=== PATIENT | female | born 1975 | race Asian ===

== ENCOUNTER → 2018-07-12 12:13 | Outpatient (CLI) | payer OTHER, SELFPAY ==
[2018-07-12 13:34] LABS: Alanine Aminotransferase 28 IU/L (9-52); Albumin 4.6 g/dL (3.5-5.0); Albumin Globulin Ratio 1.5 (1.0-2.8); Alkaline Phosphatase 87 U/L (38-126); Aspartate Aminotransferase 23 IU/L (14-36); BUN Creatinine Ratio 24.3 (6-22); Bilirubin Total 0.4 mg/dL (0.2-1.3); Blood Urea Nitrogen 17 mg/dL (7-17); Calcium 9.5 mg/dL (8.4-10.2); Carbon Dioxide 27 mmol/L (22-32); Chloride 103 mmol/L (98-107); Estimated Glomerular Filt Rate > 60.0 mL/min (>60); Globulin 3.1 g/dL (1.7-4.1); Glucose 87 mg/dL (70-100); HEMOLYSIS < 15 (0-50); Potassium 4.2 mmol/L (3.4-5.1); Sodium 142 mmol/L (137-145); Total Protein 7.7 g/dL (6.3-8.2)
[2018-07-12 13:50] LABS: Free T4, Direct Thyroxine 1.07 ng/dL (0.78-2.19)
[2018-07-12 14:04] LABS: Thyroid Stimulating Hormone 4.11 uIU/mL (0.47-4.68)
[2018-07-12 14:32] LABS: Microalbumi Creatinin Ratio Ur 24.9 ug/mg CR (<30); Microalbumin Urine Random < 0.6 mg/dL (0-1.6)
== END ==
PROVIDERS: Family Provider Physician Assistant; PCP Physician Assistant; Visit Provider Physician Assistant
DX: E03.9 Hypothyroidism, unspecified (principal); I10 Essential (primary) hypertension
CPT/HCPCS: 36415; 80053; 82043; 82570; 84439; 84443

== ENCOUNTER → 2018-08-27 09:54 | Outpatient (CLI) | payer OTHER, SELFPAY ==
--- NOTE | 2018-08-27 | DI.MG.S_ITS ---
BILATERAL DIGITAL SCREENING MAMMOGRAM 3D/2D WITH CAD: 08/27/2018 CLINICAL: Routine screening. Family history of breast cancer. Comparison is made to exams dated: 06/07/2017 mammogram, 04/30/2015 mammogram, and 05/18/2016 mammogram - [facility]. The tissue of both breasts is extremely dense, which lowers the sensitivity of mammography. Current study was also evaluated with a Computer Aided Detection (CAD) system. No significant masses, calcifications, or other findings are seen in either breast. There has been no significant interval change. IMPRESSION: NEGATIVE There is no mammographic evidence of malignancy. A 1 year screening mammogram is recommended. This exam was interpreted at Station ID: [id number]. NOTE: For mammograms, a report in lay terms will be sent to the patient. Approximately 15% of breast malignancies will not be visualized mammographically. In the management of a palpable breast mass, a negative mammogram must not discourage biopsy of a clinically suspicious lesion. Electronically Signed By: Melissa brandt/nicole:08/27/2018 11:12:05 letter sent: Normal Exam ACR BI-RADS Category 1: Negative 3341F
== END ==
PROVIDERS: PCP Physician Assistant; Visit Provider Physician Assistant
DX: Z12.31 Encounter for screening mammogram for malignant neoplasm of breast (principal); Z80.3 Family history of malignant neoplasm of breast
CPT/HCPCS: 77063; 77067

== ENCOUNTER → 2019-02-09 13:14 | Outpatient (CLI) | payer OTHER, SELFPAY ==
[2019-02-09 14:33] LABS: BUN Creatinine Ratio 18.6 (6-22); Blood Urea Nitrogen 13 mg/dL (7-17); Calcium 9.3 mg/dL (8.4-10.2); Carbon Dioxide 25 mmol/L (22-32); Chloride 101 mmol/L (98-107); Estimated Glomerular Filt Rate > 60.0 mL/min (>60); Glucose 85 mg/dL (70-100); HEMOLYSIS < 15 (0-50); Sodium 136 mmol/L (137-145)
[2019-02-09 15:03] LABS: Thyroid Stimulating Hormone 3.97 uIU/mL (0.47-4.68)
== END ==
PROVIDERS: PCP Physician Assistant; Visit Provider Physician Assistant
DX: E03.9 Hypothyroidism, unspecified (principal); I10 Essential (primary) hypertension
CPT/HCPCS: 36415; 80048; 84443

== ENCOUNTER → 2019-07-29 07:26 | Outpatient (CLI) | payer OTHER, SELFPAY ==
[2019-07-29 09:43] LABS: Alanine Aminotransferase 14 IU/L (9-52); Albumin 4.4 g/dL (3.5-5.0); Albumin Globulin Ratio 1.5 (1.0-2.8); Alkaline Phosphatase 66 U/L (38-126); Aspartate Aminotransferase 24 IU/L (14-36); BUN Creatinine Ratio 18.8 (6-22); Bilirubin Total 0.5 mg/dL (0.2-1.3); Blood Urea Nitrogen 15 mg/dL (7-17); Calcium 9.2 mg/dL (8.4-10.2); Carbon Dioxide 30 mmol/L (22-32); Chloride 101 mmol/L (98-107); Cholesterol 185 mg/dL (140-199); Estimated Glomerular Filt Rate > 60.0 mL/min (>60); Globulin 2.9 g/dL (1.7-4.1); Glucose 93 mg/dL (70-100); HDL Cholesterol 59 mg/dL (40-60); HEMOLYSIS < 15 (0-50); LDL Cholesterol Calculated 103 mg/dL (<100); Sodium 138 mmol/L (137-145); Total Protein 7.3 g/dL (6.3-8.2); Triglycerides 116 mg/dL (35-150)
[2019-07-29 10:42] LABS: Thyroid Stimulating Hormone 3.67 uIU/mL (0.47-4.68)
[2019-07-29 10:56] LABS: Creatinine Urine Random 204.7 mg/dL
[2019-07-29 11:00] LABS: Microalbumi Creatinin Ratio Ur 3.9 ug/mg CR (<30); Microalbumin Urine Random 0.8 mg/dL (0-1.6)
== END ==
PROVIDERS: PCP Physician Assistant; Visit Provider Physician Assistant
DX: E03.9 Hypothyroidism, unspecified (principal); I10 Essential (primary) hypertension
CPT/HCPCS: 36415; 80053; 80061; 82043; 82570; 84443

== ENCOUNTER → 2019-08-28 11:57 | Outpatient (CLI) | payer OTHER, SELFPAY ==
--- NOTE | 2019-08-28 11:58 | DI.MG.S_ITS ---
BILATERAL DIGITAL SCREENING MAMMOGRAM 3D/2D WITH CAD: 08/28/2019 CLINICAL: Routine screening. Comparison is made to exams dated: 08/27/2018 mammogram, 06/07/2017 mammogram, and 05/18/2016 mammogram - [facility]. The tissue of both breasts is heterogeneously dense. This may lower the sensitivity of mammography. Current study was also evaluated with a Computer Aided Detection (CAD) system. No significant masses, calcifications, or other findings are seen in either breast. There has been no significant interval change. IMPRESSION: NEGATIVE There is no mammographic evidence of malignancy. A 1 year screening mammogram is recommended. This exam was interpreted at Station ID: [id number]. NOTE: For mammograms, a report in lay terms will be sent to the patient. Approximately 15% of breast malignancies will not be visualized mammographically. In the management of a palpable breast mass, a negative mammogram must not discourage biopsy of a clinically suspicious lesion. Electronically Signed By: Sandra deshpande/nicole:08/29/2019 10:19:08 letter sent: Normal Exam ACR BI-RADS Category 1: Negative 3341F
== END ==
PROVIDERS: PCP Physician Assistant; Visit Provider Physician Assistant
DX: Z12.31 Encounter for screening mammogram for malignant neoplasm of breast (principal)
CPT/HCPCS: 77063; 77067

== ENCOUNTER 2020-03-21 12:47 | Emergency (ER) | payer OTHER, SELFPAY ==
[2020-03-21 13:12] VITALS: BP 135/98; PULSE 76; RESP 16; TEMP 36.3; O2SAT 100; BMI 23.6
[2020-03-21 14:43] LABS: Alanine Aminotransferase 17 IU/L (<35)
[2020-03-21] MEDS: TET,DIPH,PERTUSS(ACELL),VAC/PF 0.5 ML SYRINGE IM (14:43)
--- NOTE | 2020-03-21 14:47 | ED_ITS ---
HPI - General Adult <REINA Cruz-BC - Last Filed: 03/21/20 19:29> General Chief complaint: Blood/Body fluid exposure Stated complaint: middle finger right hand from arch wire. Time Seen by Provider: 03/21/20 14:17 Source: patient Mode of arrival: Ambulatory Limitations: no limitations History of Present Illness HPI narrative: And the patient is a 44-year-old female nonsmoker with history of hypothyroidism who presents with a chief complaint of being stuck by a wire during maxillofacial surgery. She states that there is a little bit of blood on the wire and went through her glove into her finger. She states that she immediately left surgery, removed her gloves and then washed her hands. She is not sure the last time she had a tetanus vaccination. She states she was fully vaccinated against hepatitis-B. She states that the the patient is low risk for HIV or blood borne diseases as he is with 2 children and does not have any pertinent history. She states she is here in order to get baseline labs drawn. Related Data Previous Rx's Medication Instructions Recorded hydrochlorothiazide 12.5 mg capsule 12.5 mg PO DAILY #90 cap 06/19/19 levothyroxine 50 mcg tablet 50 mcg PO QAM #90 tab 06/19/19 amoxicillin 875 mg tablet 875 mg PO BID #28 tab 07/31/19 amlodipine 5 mg tablet 5 mg PO QDAY #90 tab 03/20/20 Allergies Allergy/AdvReac Type Severity Reaction Status Date / Time Sulfa (Sulfonamide Allergy Severe RASH Verified 07/31/19 11:02 Antibiotics) [SULFA (SULFONAMIDE ANTIBIOTICS)] lisinopril AdvReac Intermediate cough and Verified 07/31/19 11:02 chest congestion Review of Systems <REINA Cruz-BC - Last Filed: 03/21/20 19:29> Review of Systems Narrative: GENERAL: Denies chills, fatigue, malaise, fever, sweats. HEENT: Denies sinus pain, ear pain, sore throat, difficulty swallowing, dizziness. RESPIRATORY: Denies dyspnea, cough, wheezing, hemoptysis, sputum. CARDIOVASCULAR: Denies chest pain, palpitations, orthopnea, edema, GASTROINTESTINAL: Denies nausea, vomiting, abdominal pain, diarrhea, constipation, melena. : Denies dysuria, frequency, incontinence, hematuria, urinary retention. MUSCULOSKELETAL: denies weakness, joint pain, or bony pain SKIN: See HPI NEUROLOGIC: Denies weakness, headache, numbness, change in speech, confusion, seizures, incoordination. PSYCHIATRIC: No concerning psychosocial issues. 12 point review of systems is negative except for those stated above Patient History <RAMÓN Cruz - Last Filed: 03/21/20 19:29> Medical History Hyperlipidemia (Chronic ~02/2012) Hypertension (Chronic) Hypothyroidism (Chronic) Surgical History History of nasal surgery (Resolved) Family History Father Hypertension Abdominal aortic aneurysm Coronary artery disease Hyperlipidemia Mother Breast cancer Social History Smoking Status: Never smoker second hand exposure: No alcohol intake: current (sparkling seltzer with a little bit of alcohol on occasions.) substance use type: does not use Smoking Status: Never smoker alcohol intake frequency: holidays/special occasions only Substance Use Type: does not use Exam <RAMÓN Cruz - Last Filed: 03/21/20 19:29> Narrative Exam Narrative: GENERAL: This is a well-nourished, well-developed patient, no acute distress HEAD: Atraumatic. Normocephalic. No temporal or scalp tenderness. EYES: Pupils equal round and reactive. Extraocular motions intact. No scleral icterus. No injection or drainage. ENT: Nose without bleeding, purulent drainage or septal hematoma. Throat without erythema, tonsillar hypertrophy or exudate. Uvula midline. Airway patent. NECK: Trachea midline. No JVD or lymphadenopathy. Supple, nontender, no meningeal signs. CARDIOVASCULAR: Regular rate and rhythm RESPIRATORY: No cough. No increased respiratory effort. No accessory muscle use. EXTREMITIES: Positive right radial pulse. Full range of motion noted right fingers. BACK: Nontender without deformity or crepitance. No flank tenderness. NEURO: AOx3. SKIN: Small puncture site noted on middle finger right hand, tip with no active bleeding. Initial Vital Signs Initial Vital Signs: Vital Signs Temperature 97.4 F L 03/21/20 13:12 Pulse Rate 76 03/21/20 13:12 Respiratory Rate 16 03/21/20 13:12 Blood Pressure 135/98 H 03/21/20 13:12 Pulse Oximetry 100 03/21/20 13:12 <Sherice Nieto DO - Last Filed: 04/02/20 08:32> Initial Vital Signs Initial Vital Signs: Vital Signs Temperature 97.4 F L 03/21/20 13:12 Pulse Rate 76 03/21/20 13:12 Respiratory Rate 16 03/21/20 13:12 Blood Pressure 135/98 H 03/21/20 13:12 Pulse Oximetry 100 03/21/20 13:12 Scores <RAMÓN Cruz - Last Filed: 03/21/20 19:29> GCS [place] coma scale eye opening: Spontaneous Marlon coma scale verbal response: Orientated [place] coma scale motor response: Obey commands [place] coma scale total score: 15 Course <RAMÓN Cruz - Last Filed: 03/21/20 19:29> Orders Ordered: Discontinued Medications Diphtheria/Tetanus/Acell Pertussis (Adacel) 0.5 ml IM .ONCE ONE Stop: 03/21/20 14:29 Last Admin: 03/21/20 14:43 Dose: 0.5 ml Documented by: IRENE Vital Signs Vital signs: Vital Signs - 8 hr 03/21/20 13:12 03/21/20 15:44 Temperature 97.4 F L Pulse Rate 76 74 Respiratory Rate 16 14 Blood Pressure 135/98 H 160/97 H Pulse Oximetry 100 100 <Sherice Nieto DO - Last Filed: 04/02/20 08:32> Orders Ordered: Discontinued Medications Diphtheria/Tetanus/Acell Pertussis (Adacel) 0.5 ml IM .ONCE ONE Stop: 03/21/20 14:29 Last Admin: 03/21/20 14:43 Dose: 0.5 ml Documented by: IRENE Vital Signs Vital signs: Vital Signs - 8 hr 03/21/20 13:12 03/21/20 15:44 Temperature 97.4 F L Pulse Rate 76 74 Respiratory Rate 16 14 Blood Pressure 135/98 H 160/97 H Pulse Oximetry 100 100 Medical Decision Making <RAMÓN Cruz - Last Filed: 03/21/20 19:29> Lab Data Labs: Lab Results 03/21/20 03/21/20 03/21/20 Range/Units 14:22 14:22 14:22 ALT 17 (<35) IU/L Hep Bs Antigen Negative (NEGATIVE) s/c Hep Bs Antibody Reactive (.) Hepatitis C Antibody Negative (NEGATIVE) s/c HIV 1&2 Ab/P24 Ag 4thGn Negative (NEGATIVE) MDM Narrative Medical decision making narrative: The patient is a 44-year-old female who presents with a chief complaint of being stuck by an arch wire in her right middle finger during a surgery. She is thus here for a possible blood borne exposure. Exposure panel was drawn. Patient's tetanus was up made up-to-date kit [place]. She states she is fully vaccinated against hepatitis B. She does not want post exposure prophylaxis for HIV at this point as she states that the patient is low risk, with 2 children no history of IV drug use etcetera. She plans on following up with [facility] and [facility] as well as her primary care provider. I discussed at length the importance of repeat labs, testing the patient she was exposed to if consent was given etcetera. Patient has no questions or concerns upon discharge and states understanding return precautions as well as follow-up care. <Sherice Nieto DO - Last Filed: 04/02/20 08:32> Lab Data Labs: Lab Results 03/21/20 03/21/20 03/21/20 Range/Units 14:22 14:22 14:22 ALT 17 (<35) IU/L Hep Bs Antigen Negative (NEGATIVE) s/c Hep Bs Antibody Reactive (.) Hepatitis C Antibody Negative (NEGATIVE) s/c HIV 1&2 Ab/P24 Ag 4thGn Negative (NEGATIVE) Discharge Plan Departure Patient Disposition: Home Clinical Impression: Exposure to blood or body fluid Discharge Date/Time: 03/21/20 15:45 Instructions: DI for Accidental Exposure to Body Fluids Activity Restrictions/Additional Instructions: Thank you for trusting us with your care today I am sorry that you were stuck with wire. Today we updated your tetanus. We also pranay baseline exposure panel labs. We have elected to hold off on HIV post exposure prophylaxis as the patient your exposed to appeared to be low risk. In the hospital, we ask for permission to get baseline labs for the patient in order to facilitate decision making. This might be nice to do if possible. I will call you later today when we have more blood lab results. Otherwise, there other rest of the labs will come back in 2-3 days Please follow up with [facility] as well as your primary care provider. Prescriptions: No Action amlodipine [Norvasc] 5 mg tablet 5 mg PO QDAY Qty: 90 RF: 0 hydrochlorothiazide 12.5 mg capsule 12.5 mg PO DAILY Qty: 90 RF: 3 levothyroxine 50 mcg tablet 50 mcg PO QAM Qty: 90 RF: 3 amoxicillin 875 mg tablet 875 mg PO BID Qty: 28 RF: 0 Referrals: Kassidy Caldwell PA-C [Primary Care Provider] - Gerard Monsalve ARNP [[employer]] -
[2020-03-21 15:44] VITALS: BP 160/97; PULSE 74; RESP 14; O2SAT 100
[2020-03-21 16:18] LABS: Hepatitis B Surface Antigen NEGATIVE s/c (NEGATIVE)
[2020-03-21 16:48] LABS: HIV 1 & 2 Ab/Ag 4th Gen Combo NEGATIVE (NEGATIVE); Hep C Virus Ab w/Reflex Quant NEGATIVE s/c (NEGATIVE)
[2020-03-22 04:36] LABS: Hepatitis B Surf Ab Qualitativ Reactive (.)
== END 2020-03-21 15:45 | disposition home or self-care (01) ==
PROVIDERS: Emergency Provider Nurse Practitioner Family; PCP Physician Assistant
DX: Z77.21 Contact with and (suspected) exposure to potentially hazardous body fluids (principal); W22.8XXA Striking against or struck by other objects, initial encounter; Y99.0 Civilian activity done for income or pay; Z23 Encounter for immunization
CPT/HCPCS: 36415; 84460; 86706; 86803; 87340; 87389; 90471; 99283; 90715

== ENCOUNTER → 2020-07-15 07:26 | Outpatient (CLI) | payer OTHER, SELFPAY ==
[2020-07-15 08:34] LABS: Hematocrit 43.2 % (36-46); Hemoglobin 14.6 g/dL (12.0-16.0); Mean Corpuscular HGB Conc 33.7 % (30-36); Mean Corpuscular Hemoglobin 30.3 PG (26-34); Mean Corpuscular Volume 89.9 fL (80-100); Platelet Count 219 X10^3/uL (150-400); Red Blood Cell Count 4.81 X10^6/uL (4.0-5.2); Red Cell Distribution Width 13.4 % (11.6-14.8); White Blood Cell Count 4.6 X10^3/uL (4.5-11.0)
[2020-07-15 08:59] LABS: Alanine Aminotransferase 19 IU/L (<35); Albumin 4.4 g/dL (3.5-5.0); Albumin Globulin Ratio 1.5 (1.0-2.8); Alkaline Phosphatase 80 U/L (38-126); Aspartate Aminotransferase 28 IU/L (14-36); BUN Creatinine Ratio 15.3 (6-22); Bilirubin Total 0.6 mg/dL (0.2-1.3); Blood Urea Nitrogen 11 mg/dL (7-17); Calcium 9.3 mg/dL (8.4-10.2); Carbon Dioxide 32 mmol/L (22-32); Chloride 102 mmol/L (98-107); Cholesterol 241 mg/dL (140-199); Estimated Glomerular Filt Rate > 60.0 mL/min (>60); Globulin 2.9 g/dL (1.7-4.1); Glucose 98 mg/dL (70-100); HDL Cholesterol 57 mg/dL (40-60); HEMOLYSIS < 15 (0-50); LDL Cholesterol Calculated 148 mg/dL (<100); Potassium 4.3 mmol/L (3.4-5.1); Sodium 140 mmol/L (137-145); Total Protein 7.3 g/dL (6.3-8.2); Triglycerides 178 mg/dL (35-150)
[2020-07-15 09:24] LABS: TSH w/ Reflex to FT4 6.83 uIU/mL (0.47-4.68)
[2020-07-15 09:52] LABS: Free T4, Direct Thyroxine 1.15 ng/dL (0.78-2.19)
--- NOTE | 2020-07-15 10:13 | DI.US.S_ITS ---
PROCEDURE: US PELVIC COMPLETE INDICATIONS: WORSENING LEFT PELVIC PAIN X 6 MONTHS TECHNIQUE: Real-time scanning was performed of the pelvic organs, with image documentation. Additional endovaginal scanning was necessary due to incomplete visualization of the adnexal and endometrial structures by transabdominal scanning. COMPARISON: [facility], US, PELVIC COMPLETE, 09/27/2013, 10:07. FINDINGS: Transabdominal scanning: Limited scanning through the kidneys shows no hydronephrosis. 5 x 4 x 5 mm homogeneously hyperechoic structure is noted in midpole of left kidney without internal vascularity. No pathologic free abdominal fluid. Physiologic amount of free fluid is seen in lower pelvis. Endovaginal scanning: Uterus: Uterus is normal in size at 7.9 x 5.1 x 5.6 cm. The endometrium measures 5.8 mm in combined thickness. Multiple anechoic cysts are noted scattered in myometrium measures up to 3 x 3 x 2 mm in size. No gross endometrial mass or fluid. Small nabothian cysts are noted in endocervical canal. Ovaries: Right ovary measures 3.4 x 2.7 x 1.9 cm in size. Left ovary measures 2.6 x 1.6 x 1.0 cm in size. 1.4 x 1.4 x 0.8 cm cystic structure in right ovary is seen with internal low level echoes. No internal vascularity. left Normal arterial and venous flow is seen in bilateral ovaries on color Doppler images. IMPRESSION: 1. Right ovarian cyst as above, decreased in size compared to 2013 study. No gross solid appearing ovarian lesion. No evidence of ovarian torsion. 2. Tiny cystic areas are seen scattered in myometrium measures up to 3 mm in size. No endometrial mass or fluid. 3. Incidentally noted of 5 x 4 x 5 mm hyperechoic structure in midpole of left kidney likely represent angiomyolipoma. Dictated by: Quincy Cramer M.D. on 07/15/2020 at 14:41 Approved by: Quincy Cramer M.D. on 07/15/2020 at 14:47
== END ==
PROVIDERS: PCP Registered Nurse Diabetes Educator; Referring Provider Registered Nurse Diabetes Educator; Visit Provider Registered Nurse Diabetes Educator
DX: R10.2 Pelvic and perineal pain (principal); N83.201 Unspecified ovarian cyst, right side; E03.9 Hypothyroidism, unspecified; E78.00 Pure hypercholesterolemia, unspecified; I10 Essential (primary) hypertension
CPT/HCPCS: 36415; 76830; 76856; 80053; 80061; 84439; 84443; 85027

== ENCOUNTER → 2020-08-26 10:52 | Outpatient (CLI) | payer OTHER, SELFPAY ==
[2020-08-26 12:34] LABS: Cancer Antigen 125 9.5 U/mL (0-35); TSH w/ Reflex to FT4 1.41 uIU/mL (0.47-4.68)
== END ==
PROVIDERS: Obstetrics & Gynecology; PCP Registered Nurse Diabetes Educator; Referring Provider Registered Nurse Diabetes Educator; Visit Provider Registered Nurse Diabetes Educator
DX: N83.201 Unspecified ovarian cyst, right side (principal); E03.9 Hypothyroidism, unspecified
CPT/HCPCS: 36415; 84443; 86304

== ENCOUNTER → 2020-08-30 16:03 | Outpatient (CLI) | payer OTHER, SELFPAY ==
--- NOTE | 2020-08-30 16:05 | DI.MG.S_ITS ---
BILATERAL DIGITAL SCREENING MAMMOGRAM 3D/2D WITH CAD: 08/30/2020 CLINICAL: Routine screening. Family history of breast cancer. Comparison is made to exams dated: 08/28/2019 mammogram, 08/27/2018 mammogram, and 06/07/2017 mammogram - [facility]. The tissue of both breasts is heterogeneously dense. This may lower the sensitivity of mammography. Current study was also evaluated with a Computer Aided Detection (CAD) system. No significant masses, calcifications, or other findings are seen in either breast. There has been no significant interval change. IMPRESSION: NEGATIVE There is no mammographic evidence of malignancy. A 1 year screening mammogram is recommended. This exam was interpreted at Station ID: [id number]. NOTE: For mammograms, a report in lay terms will be sent to the patient. Approximately 15% of breast malignancies will not be visualized mammographically. In the management of a palpable breast mass, a negative mammogram must not discourage biopsy of a clinically suspicious lesion. Electronically Signed By: Steve merchant/nicole:09/02/2020 12:49:02 letter sent: Normal Exam ACR BI-RADS Category 1: Negative 3341F
== END ==
PROVIDERS: PCP Registered Nurse Diabetes Educator; Referring Provider Registered Nurse Diabetes Educator; Visit Provider Registered Nurse Diabetes Educator
DX: Z12.31 Encounter for screening mammogram for malignant neoplasm of breast (principal); Z80.3 Family history of malignant neoplasm of breast
CPT/HCPCS: 77063; 77067

== ENCOUNTER → 2020-09-03 16:46 | Outpatient (CLI) | payer OTHER, SELFPAY ==
[2020-09-03 19:44] LABS: Specimen Label KIT TEST
== END ==
PROVIDERS: PCP Registered Nurse Diabetes Educator; Referring Provider Obstetrics & Gynecology; Visit Provider Obstetrics & Gynecology
DX: N94.6 Dysmenorrhea, unspecified (principal); Z80.3 Family history of malignant neoplasm of breast; Z80.6 Family history of leukemia
CPT/HCPCS: 36415

== ENCOUNTER → 2020-11-01 12:31 | Outpatient (CLI) | payer OTHER, SELFPAY ==
[2020-11-01 15:27] LABS: COVID19 -Nasal RAPID Negative (Negative)
== END ==
PROVIDERS: PCP Registered Nurse Diabetes Educator; Visit Provider Specialist
DX: Z01.812 Encounter for preprocedural laboratory examination (principal); Z20.822 Contact with and (suspected) exposure to COVID-19
CPT/HCPCS: 87635

== ENCOUNTER 2020-11-04 08:14 | Day surgery (SDC) | payer OTHER, SELFPAY ==
--- NOTE | 2020-11-04 | PATH_ITS ---
[facility] Accession Number: [id number] . 01 Material submitted: . endometrium - ENDOMETRIAL CURETTINGS . 02 Diagnosis: Endometrium, Curettage: Proliferative endometrium with no diagnostic abnormality. Negative for atypical hyperplasia or malignancy. MRV 11/06/2020 1425 Local . 02 Electronically signed: . Nathan Burton MD, PhD, Pathologist NPI- [id number] . 01 Gross description: . The specimen is received in formalin, labeled endometrial curettings and consists of multiple murguia-pink fragments of soft tissue, measuring 2.5 x 1.0 x 0.4 cm in aggregate. The specimen is filtered and entirely submitted in cassette A1. ([id number]) /[facility] 11/05/2020 1753 Local . 02 Pathologist provided ICD-10: N92.0, R10.2, N94.6 . 02 CPT . 462825 Performed at: 01 [facility] [address] [facility], [place], [place] [id number] MD Ric Lino MD Phone: [phone] Performed at: 02 [facility] [address] [place], [place] [id number] MD Jenniffer Gibson MD Phone: [phone]
[2020-11-04 08:40] VITALS: BP 132/99; PULSE 84; RESP 16; TEMP 36.5; O2SAT 100; BMI 23.9
[2020-11-04] MEDS: LACTATED RINGERS 1,000 ML 42 ML IV (08:53)
--- NOTE | 2020-11-04 09:25 | PM.PREOP ---
Pre-operative Note COVID-19 COVID-19 status: Negative Result date/Date tested (Pos, Neg/Pending): 11/01/20 Interval Note History & Physical reviewed/Exam performed by Physician: Yes Changes to H&P: No H&P completed within 30 days and has changed as indicated here:: 10/24/20
--- NOTE | 2020-11-04 09:50 | SUR.OPER ---
Lithotomy on padded OR bed, head on pillow, arms secured on padded arm boards at <90 degrees abduction. Legs secured in padded yellow fins stirrups.
[2020-11-04 10:12] VITALS: BP 82/52; PULSE 80; RESP 14; TEMP 36.1; O2SAT 96
--- NOTE | 2020-11-04 10:15 | PM.GYNOP.1 ---
Operative Date/Time/Diagnoses Date of procedure: 11/04/20 Time of procedure: 10:15 Pre-op diagnosis: Menorrhagia Dysmenorrhea Post-op diagnosis: same Procedure & Clinicians Procedure: Procedures Operation Date: 11/04/20 09:30 Actual Procedures Side Surgeon iraj D&C Hysteroscopy w/Novasure Ablation Linda Cifuentes MD Indications: Menorrhagia Dysmenorrhea Surgeon: Linda Cifuentes Anesthesia Type: General (LMA) Operative Notes Findings: 7 week size retroverted uterus Closure Type: not applicable Specimen(s): endometrial curettings Estimated blood loss (mL): 5 Blood products transfused: none Procedure in detail: The patient was taken to the operating room where she was placed in the dorsal supine position. After adequate LMA general anesthesia was achieved, she was placed in the dorsal lithotomy position, and prepped and draped in the usual sterile fashion. A time-out was performed. A bivalve speculum was placed into the vagina and the anterior lip of the cervix was grasped with a single-tooth tenaculum. The cervical os was sequentially dilated to the # 8 Hegar dilator. The uterus was retroverted. The hysteroscope passed easily into the endometrial cavity. Both fallopian tube ostia were observed. There was thickened endometrium throughout. The hysteroscope was removed. Sharp curettage was performed yielding a large amount of endometrial curettings. The uterus was measured from the internal os to the fundus and measured 5 cm. This was set on the NovaSure catheter and the generator. The NovaSure catheter passed easily into the endometrial cavity in a retroverted direction. The catheter was opened. The width of the uterus was 3.5 cm. This indicated a power of 96 w. The cervix was capped, the cavity assessment was performed and passed. The cycle was initiated and lasted 84 seconds. At the completion of the cycle, the cervix was uncapped, a catheter was closed and removed from the uterus. The single-tooth tenaculum was removed from the anterior lip of the cervix. The bivalve speculum was removed from the vagina. Sponge, lap, and instrument counts were correct x2. The patient tolerated the procedure well, and was taken to PACU in stable condition. Complications: none Post-operative Condition: stable Disposition: PACU Plan for aftercare: Home after recovery
[2020-11-04 10:17] VITALS: BP 88/56; PULSE 76; RESP 13; O2SAT 96
[2020-11-04 10:27] VITALS: BP 109/78; PULSE 81; RESP 12; O2SAT 95
--- NOTE | 2020-11-04 10:39 | SUR.PHASEI ---
Pt arrived to pacu. Chin support needed for airway patency for short time. Airway now patent.
[2020-11-04 10:45] VITALS: BP 108/80; PULSE 73; RESP 14; TEMP 36.6; O2SAT 98
--- NOTE | 2020-11-04 11:00 | SUR.PHASEII ---
Pt wanting to rest for a bit before trying to get up and walk, vss, denies pain or nausea.
[2020-11-04 11:10] VITALS: BP 119/78; PULSE 63; RESP 16; TEMP 36.6; O2SAT 99
== END 2020-11-04 11:20 | disposition home or self-care (01) ==
PROVIDERS: PCP Registered Nurse Diabetes Educator; Referring Provider Registered Nurse Diabetes Educator; Visit Provider Obstetrics & Gynecology
PROC: 0U5B8ZZ Destruction of Endometrium, Via Natural or Artificial Opening Endoscopic (ICD-10-PCS; CPT 58563; principal; 2020-11-04 09:30)
DX: N92.0 Excessive and frequent menstruation with regular cycle (principal); N94.6 Dysmenorrhea, unspecified; I10 Essential (primary) hypertension; E03.9 Hypothyroidism, unspecified
CPT/HCPCS: 58563; J2250; J2704; J3010

== ENCOUNTER → 2021-07-25 07:31 | Outpatient (CLI) | payer OTHER, SELFPAY ==
[2021-07-25 08:19] LABS: Hematocrit 41.9 % (36-46); Hemoglobin 13.8 g/dL (12.0-16.0); Platelet Count 263 X10^3/uL (150-400); Red Blood Cell Count 4.76 X10^6/uL (4.0-5.2); Red Cell Distribution Width 13.6 % (11.6-14.8); White Blood Cell Count 5.1 X10^3/uL (4.5-11.0)
[2021-07-25 08:55] LABS: Alanine Aminotransferase 18 IU/L (<35); Albumin 4.2 g/dL (3.5-5.0); Albumin Globulin Ratio 1.4 (1.0-2.8); Alkaline Phosphatase 79 U/L (38-126); Aspartate Aminotransferase 24 IU/L (14-36); BUN Creatinine Ratio 21.9 (6-22); Bilirubin Total 0.5 mg/dL (0.2-1.3); Blood Urea Nitrogen 16 mg/dL (7-17); Calcium 9.5 mg/dL (8.4-10.2); Carbon Dioxide 29 mmol/L (22-32); Chloride 103 mmol/L (98-107); Cholesterol 230 mg/dL (140-199); Estimated Glomerular Filt Rate > 60.0 mL/min (>60); Globulin 2.9 g/dL (1.7-4.1); Glucose 101 mg/dL (70-100); HDL Cholesterol 47 mg/dL (40-60); HEMOLYSIS < 15 (0-50); LDL Cholesterol Calculated 154 mg/dL (<100); Potassium 4.1 mmol/L (3.4-5.1); Sodium 140 mmol/L (137-145); Total Protein 7.1 g/dL (6.3-8.2); Triglycerides 145 mg/dL (35-150)
[2021-07-25 09:22] LABS: Thyroid Stimulating Hormone 2.49 uIU/mL (0.47-4.68)
== END ==
PROVIDERS: PCP Registered Nurse Diabetes Educator; Referring Provider Registered Nurse Diabetes Educator; Visit Provider Registered Nurse Diabetes Educator
DX: E03.9 Hypothyroidism, unspecified (principal); E78.00 Pure hypercholesterolemia, unspecified; E78.5 Hyperlipidemia, unspecified; I10 Essential (primary) hypertension
CPT/HCPCS: 36415; 80053; 80061; 84443; 85027

== ENCOUNTER → 2021-09-02 11:33 | Outpatient (CLI) | payer OTHER, SELFPAY | PROVIDERS: PCP Registered Nurse Diabetes Educator; Referring Provider Ophthalmology; Visit Provider Ophthalmology | DX: H10.43 Chronic follicular conjunctivitis (principal) | CPT/HCPCS: 87110; 87140; 87252 ==

== ENCOUNTER → 2021-09-08 16:11 | Outpatient (CLI) | payer OTHER, SELFPAY ==
--- NOTE | 2021-09-08 | DI.MG.S_ITS ---
BILATERAL DIGITAL SCREENING MAMMOGRAM 3D/2D WITH CAD: 09/08/2021 CLINICAL: Routine screening. Family history of breast cancer. Comparison is made to exams dated: 08/28/2019 mammogram, 08/27/2018 mammogram, and 06/07/2017 mammogram - [facility]. The tissue of both breasts is extremely dense, which lowers the sensitivity of mammography. Current study was also evaluated with a Computer Aided Detection (CAD) system. No significant masses, calcifications, or other findings are seen in either breast. There has been no significant interval change. IMPRESSION: NEGATIVE There is no mammographic evidence of malignancy. A 1 year screening mammogram is recommended. This exam was interpreted at Station ID: [id number]. NOTE: For mammograms, a report in lay terms will be sent to the patient. Approximately 15% of breast malignancies will not be visualized mammographically. In the management of a palpable breast mass, a negative mammogram must not discourage biopsy of a clinically suspicious lesion. Electronically Signed By: Ric garcia/nicole:09/08/2021 16:39:26 letter sent: Normal Exam ACR BI-RADS Category 1: Negative 3341F
== END ==
PROVIDERS: PCP Registered Nurse Diabetes Educator; Referring Provider Registered Nurse Diabetes Educator; Visit Provider Registered Nurse Diabetes Educator
DX: Z12.31 Encounter for screening mammogram for malignant neoplasm of breast (principal); Z80.3 Family history of malignant neoplasm of breast
CPT/HCPCS: 77063; 77067

== ENCOUNTER → 2021-11-05 06:57 | Outpatient (CLI) | payer OTHER, SELFPAY ==
[2021-11-05 08:29] LABS: BUN Creatinine Ratio 29.2 (6-22); Blood Urea Nitrogen 21 mg/dL (7-17); Calcium 9.4 mg/dL (8.4-10.2); Carbon Dioxide 27 mmol/L (22-32); Chloride 103 mmol/L (98-107); Cholesterol 155 mg/dL (140-199); Estimated Glomerular Filt Rate > 60.0 mL/min (>60); Glucose 92 mg/dL (70-100); HDL Cholesterol 40 mg/dL (40-60); HEMOLYSIS 27 (0-50); LDL Cholesterol Calculated 99 mg/dL (<100); Potassium 3.9 mmol/L (3.4-5.1); Sodium 137 mmol/L (137-145); Triglycerides 80 mg/dL (35-150)
== END ==
PROVIDERS: PCP Registered Nurse Diabetes Educator; Referring Provider Registered Nurse Diabetes Educator; Visit Provider Registered Nurse Diabetes Educator
DX: E78.5 Hyperlipidemia, unspecified (principal); I10 Essential (primary) hypertension
CPT/HCPCS: 36415; 80048; 80061

== ENCOUNTER → 2022-02-03 06:57 | Outpatient (CLI) | payer OTHER, SELFPAY ==
[2022-02-03 08:40] LABS: Cholesterol 149 mg/dL (140-199); Glucose 89 mg/dL (70-100); HDL Cholesterol 51 mg/dL (40-60); LDL Cholesterol Calculated 83 mg/dL (<100); Triglycerides 75 mg/dL (35-150)
== END ==
PROVIDERS: PCP Registered Nurse Diabetes Educator; Referring Provider Registered Nurse Diabetes Educator; Visit Provider Registered Nurse Diabetes Educator
DX: E78.5 Hyperlipidemia, unspecified (principal); I10 Essential (primary) hypertension; R73.01 Impaired fasting glucose
CPT/HCPCS: 36415; 80061; 82947

== ENCOUNTER → 2022-07-31 06:43 | Outpatient (CLI) | payer OTHER, SELFPAY ==
[2022-07-31 07:18] LABS: Hemoglobin 14.3 g/dL (12.0-16.0); Mean Corpuscular Hemoglobin 29.9 PG (26-34); Mean Corpuscular Volume 87.8 fL (80-100); Platelet Count 166 X10^3/uL (150-400); Red Blood Cell Count 4.78 X10^6/uL (4.0-5.2); Red Cell Distribution Width 13.1 % (11.6-14.8); White Blood Cell Count 4.2 X10^3/uL (4.5-11.0)
[2022-07-31 07:37] LABS: Alanine Aminotransferase 17 IU/L (<35); Albumin 4.1 g/dL (3.5-5.0); Albumin Globulin Ratio 1.3 (1.0-2.8); Alkaline Phosphatase 68 U/L (38-126); Aspartate Aminotransferase 22 IU/L (14-36); BUN Creatinine Ratio 35.3 (6-22); Bilirubin Total 0.5 mg/dL (0.2-1.3); Blood Urea Nitrogen 24 mg/dL (7-17); Calcium 8.9 mg/dL (8.4-10.2); Carbon Dioxide 31 mmol/L (22-32); Chloride 102 mmol/L (98-107); Cholesterol 167 mg/dL (140-199); Estimated Glomerular Filt Rate > 60 mL/min (>60); Globulin 3.2 g/dL (1.7-4.1); Glucose 98 mg/dL (70-100); HDL Cholesterol 48 mg/dL (40-60); HEMOLYSIS < 15 (0-50); LDL Cholesterol Calculated 106 mg/dL (<100); Potassium 3.8 mmol/L (3.4-5.1); Sodium 141 mmol/L (137-145); Total Protein 7.3 g/dL (6.3-8.2); Triglycerides 67 mg/dL (35-150)
[2022-07-31 08:43] LABS: TSH w/ Reflex to FT4 2.56 uIU/mL (0.47-4.68)
== END ==
PROVIDERS: PCP Registered Nurse Diabetes Educator; Referring Provider Registered Nurse Diabetes Educator; Visit Provider Registered Nurse Diabetes Educator
DX: E03.9 Hypothyroidism, unspecified (principal); E78.5 Hyperlipidemia, unspecified; I10 Essential (primary) hypertension; R73.01 Impaired fasting glucose
CPT/HCPCS: 36415; 80053; 80061; 84443; 85027

== ENCOUNTER → 2023-01-15 09:08 | Outpatient (CLI) | payer BC, SELFPAY ==
--- NOTE | 2023-01-15 | DI.MG.S_ITS ---
BILATERAL DIGITAL SCREENING MAMMOGRAM 3D/2D WITH CAD: 01/15/2023 CLINICAL: Routine screening. Family history of breast cancer. Comparison is made to exams dated: 09/08/2021 mammogram, 08/30/2020 mammogram, and 08/28/2019 mammogram - [facility]. Both breasts are extremely dense, which lowers the sensitivity of mammography (category d />75% glandular tissue). Current study was also evaluated with a Computer Aided Detection (CAD) system. No significant masses, calcifications, or other findings are seen in either breast. There has been no significant interval change. IMPRESSION: NEGATIVE There is no mammographic evidence of malignancy. A 1 year screening mammogram is recommended. Based on Tyrer-Cuzick model (a risk assessment model), the patient's lifetime risk is 36.8% and her 10 year risk is 9.4%. If a patient has an elevated risk, a more comprehensive evaluation should be considered and/or a referral to a genetic counselor. The [place] [employer], [place] [employer], and NCCN Guidelines advise the consideration of Breast MRI as an adjunct to screening mammography in patients whose Lifetime risk to develop breast cancer is 20% or higher. This exam was interpreted at Station ID: [id number]. NOTE: For mammograms, a report in lay terms will be sent to the patient. Approximately 15% of breast malignancies will not be visualized mammographically. In the management of a palpable breast mass, a negative mammogram must not discourage biopsy of a clinically suspicious lesion. Electronically Signed By: Demetri rodriguez/nicole:01/15/2023 10:53:23 letter sent: Normal Exam ACR BI-RADS Category 1: Negative 3341F
== END ==
PROVIDERS: PCP Registered Nurse Diabetes Educator; Referring Provider Registered Nurse Diabetes Educator; Visit Provider Registered Nurse Diabetes Educator
DX: Z12.31 Encounter for screening mammogram for malignant neoplasm of breast (principal); Z80.3 Family history of malignant neoplasm of breast
CPT/HCPCS: 77063; 77067

== ENCOUNTER → 2023-09-11 08:08 | Outpatient (CLI) | payer BC, SELFPAY ==
[2023-09-11 09:30] LABS: Hematocrit 42.2 % (36-46); Hemoglobin 14.2 g/dL (12.0-16.0); Mean Corpuscular HGB Conc 33.6 % (30-36); Mean Corpuscular Hemoglobin 29.9 PG (26-34); Mean Corpuscular Volume 88.8 fL (80-100); Platelet Count 214 X10^3/uL (150-400); Red Blood Cell Count 4.76 X10^6/uL (4.0-5.2); Red Cell Distribution Width 13.6 % (11.6-14.8); White Blood Cell Count 3.5 X10^3/uL (4.5-11.0)
[2023-09-11 09:44] LABS: Alanine Aminotransferase 17 IU/L (<35); Albumin 4.4 g/dL (3.5-5.0); Albumin Globulin Ratio 1.3 (1.0-2.8); Alkaline Phosphatase 66 U/L (38-126); Aspartate Aminotransferase 25 IU/L (14-36); BUN Creatinine Ratio 43.1 (6-22); Bilirubin Total 0.7 mg/dL (0.2-1.3); Blood Urea Nitrogen 28 mg/dL (7-17); Calcium 9.7 mg/dL (8.4-10.2); Carbon Dioxide 29 mmol/L (22-32); Chloride 101 mmol/L (98-107); Cholesterol 195 mg/dL (140-199); Estimated Glomerular Filt Rate > 60 mL/min (>60); Globulin 3.3 g/dL (1.7-4.1); Glucose 94 mg/dL (70-100); HDL Cholesterol 52 mg/dL (40-60); HEMOLYSIS < 15 (0-50); LDL Cholesterol Calculated 126 mg/dL (<100); Potassium 3.8 mmol/L (3.4-5.1); Sodium 136 mmol/L (137-145); Total Protein 7.7 g/dL (6.3-8.2); Triglycerides 84 mg/dL (35-150)
[2023-09-11 09:45] LABS: HEMOLYSIS < 15 (0-50); Iron 102 ug/dL (37-170)
[2023-09-11 09:55] LABS: Percent Iron Saturation 29 % (15-50); Total Iron Binding Capacity 355 ug/dL (265-497); Transferrin 304 mg/dL (206-381)
[2023-09-11 10:02] LABS: Follicle Stimulating Hormone 71.9 mIU/mL
[2023-09-11 10:18] LABS: TSH w/ Reflex to FT4 3.01 uIU/mL (0.47-4.68)
[2023-09-11 10:19] LABS: Ferritin 61 ng/mL (11-264); Testosterone 33.7 ng/dL (5.71-77.0)
== END ==
PROVIDERS: PCP Registered Nurse Diabetes Educator; Referring Provider Registered Nurse Diabetes Educator; Visit Provider Registered Nurse Diabetes Educator
DX: I10 Essential (primary) hypertension (principal); E03.9 Hypothyroidism, unspecified; N95.1 Menopausal and female climacteric states; L65.0 Telogen effluvium; L65.8 Other specified nonscarring hair loss
CPT/HCPCS: 36415; 80053; 80061; 82627; 82728; 83001; 83540; 83550; 84403; 84443; 85027

== ENCOUNTER → 2024-01-26 14:51 | Outpatient (CLI) | payer BC, SELFPAY ==
--- NOTE | 2024-01-26 14:53 | DI.MG.S_ITS ---
BILATERAL DIGITAL SCREENING MAMMOGRAM 3D/2D WITH CAD: 01/26/2024 CLINICAL: Routine screening. Family history of breast cancer. Comparison is made to exams dated: 01/15/2023 mammogram, 09/08/2021 mammogram, and 08/30/2020 mammogram - [facility]. Both breasts are heterogeneously dense, which may obscure small masses (category c / 51-75% glandular tissue). Current study was also evaluated with a Computer Aided Detection (CAD) system. No significant masses, calcifications, or other findings are seen in either breast. There has been no significant interval change. IMPRESSION: NEGATIVE There is no mammographic evidence of malignancy. A 1 year screening mammogram is recommended. Based on Tyrer-Cuzick model (a risk assessment model), the patient's lifetime risk is 26.4% and her 10 year risk is 6.7%. If a patient has an elevated risk, a more comprehensive evaluation should be considered and/or a referral to a genetic counselor. The [place] [employer], [place] [employer], and NCCN Guidelines advise the consideration of Breast MRI as an adjunct to screening mammography in patients whose Lifetime risk to develop breast cancer is 20% or higher. This exam was interpreted at Station ID: [id number]. NOTE: For mammograms, a report in lay terms will be sent to the patient. Approximately 15% of breast malignancies will not be visualized mammographically. In the management of a palpable breast mass, a negative mammogram must not discourage biopsy of a clinically suspicious lesion. Electronically Signed By: Harman marmolejo/nicole:01/26/2024 17:02:55 letter sent: Normal Exam ACR BI-RADS Category 1: Negative 3341F
== END ==
LOC: MAMMO 14:52
PROVIDERS: PCP Registered Nurse Diabetes Educator; Referring Provider Registered Nurse Diabetes Educator; Visit Provider Registered Nurse Diabetes Educator
DX: Z12.31 Encounter for screening mammogram for malignant neoplasm of breast (principal); Z80.3 Family history of malignant neoplasm of breast; R92.333 Mammographic heterogeneous density, bilateral breasts
CPT/HCPCS: 77063; 77067

== ENCOUNTER → 2024-08-14 14:09 | Outpatient (CLI) | payer BC, SELFPAY ==
--- NOTE | 2024-08-14 14:11 | DI.RAD.S_ITS ---
PROCEDURE: XR HIP W PEL IF DONE LT 2V INDICATIONS: eval L hip pain TECHNIQUE: Two views of the hip were acquired. COMPARISON: None. FINDINGS: Bones: There are no osseous abnormalities. SI and hip joints: Normal in width and alignment without arthritic change Soft tissues: No soft tissue swelling, calcification or mass. IMPRESSION: Normal pelvis Dictated by: Bhanu Dotson M.D. on 08/15/2024 at 10:04 Approved by: Bhanu Dotson M.D. on 08/15/2024 at 10:04
== END ==
LOC: LAB 14:10 → RAD 14:11
PROVIDERS: PCP Registered Nurse Diabetes Educator; Referring Provider Registered Nurse Diabetes Educator; Visit Provider Registered Nurse Diabetes Educator
DX: M25.552 Pain in left hip (principal); G89.29 Other chronic pain
CPT/HCPCS: 73502

== ENCOUNTER → 2024-09-23 07:50 | Outpatient (CLI) | payer BC, SELFPAY ==
[2024-09-23 08:32] LABS: Hematocrit 41.8 % (36-46); Hemoglobin 14.1 g/dL (12.0-16.0); Mean Corpuscular HGB Conc 33.8 % (30-36); Mean Corpuscular Hemoglobin 30.2 PG (26-34); Mean Corpuscular Volume 89.3 fL (80-100); Platelet Count 203 X10^3/uL (150-400); Red Blood Cell Count 4.68 X10^6/uL (4.0-5.2); Red Cell Distribution Width 13.5 % (11.6-14.8); White Blood Cell Count 4.7 X10^3/uL (4.5-11.0)
[2024-09-23 09:19] LABS: Alanine Aminotransferase 17 IU/L (<35); Albumin 4.2 g/dL (3.5-5.0); Albumin Globulin Ratio 1.8 (1.0-2.8); Alkaline Phosphatase 61 U/L (38-126); Aspartate Aminotransferase 24 IU/L (14-36); BUN Creatinine Ratio 33.3 (6-22); Bilirubin Total 0.7 mg/dL (0.2-1.3); Blood Urea Nitrogen 24 mg/dL (7-17); Calcium 9.1 mg/dL (8.4-10.2); Carbon Dioxide 23 mmol/L (22-32); Chloride 104 mmol/L (98-107); Cholesterol 210 mg/dL (140-199); Estimated Glomerular Filt Rate > 60 mL/min (>60); Globulin 2.3 g/dL (1.7-4.1); Glucose 98 mg/dL (70-100); HDL Cholesterol 54 mg/dL (40-60); HEMOLYSIS < 15 (0-50); LDL Cholesterol Calculated 131 mg/dL (<100); Potassium 3.9 mmol/L (3.4-5.1); Sodium 135 mmol/L (137-145); Total Protein 6.5 g/dL (6.3-8.2); Triglycerides 124 mg/dL (35-150)
[2024-09-23 09:49] LABS: TSH w/ Reflex to FT4 4.66 uIU/mL (0.47-4.68)
== END ==
PROVIDERS: PCP Registered Nurse Diabetes Educator; Referring Provider Registered Nurse Diabetes Educator; Visit Provider Registered Nurse Diabetes Educator
DX: E78.5 Hyperlipidemia, unspecified (principal); I10 Essential (primary) hypertension; E03.9 Hypothyroidism, unspecified
CPT/HCPCS: 36415; 80053; 80061; 84443; 85027

== ENCOUNTER → 2025-02-15 14:57 | Outpatient (CLI) | payer OTHER, SELFPAY ==
--- NOTE | 2025-02-15 15:00 | DI.RAD.S_ITS ---
PROCEDURE: XR CLAVICLE RT INDICATIONS: fall in Nov, pain @center clavicle TECHNIQUE: 2 views of the clavicle were acquired. COMPARISON: [facility], CR, XR SHOULDER RT 2+ VIEWS, 02/15/2025, 15:09. FINDINGS AND IMPRESSION: Mild acromioclavicular arthrosis. No acute displaced fracture. No suspicious soft tissue calcifications. If there is high concern for occult injury, consider repeat radiography or cross-sectional imaging. Dictated by: Neftali Clements M.D. on 02/15/2025 at 16:08 Approved by: Neftali Clements M.D. on 02/15/2025 at 16:09
--- NOTE | 2025-02-15 15:00 | DI.RAD.S_ITS ---
PROCEDURE: XR SHOULDER RT MIN 2V INDICATIONS: fall in Feb, pain @center clavicle TECHNIQUE: 3 views of the shoulder were acquired. COMPARISON: None. FINDINGS: Bones: No acute fractures or dislocations. No suspicious bony lesions. Visualized ribs appear intact. Dizr-om-eorfverh acromioclavicular joint osteoarthrosis. Soft tissues: No suspicious soft tissue calcifications. IMPRESSION: No acute osseous abnormality. Bykl-qm-rbectoii acromioclavicular joint osteoarthrosis. Approved by: Demetri Nash M.D. on 02/15/2025 at 19:12
== END ==
LOC: DI 14:59
PROVIDERS: PCP Registered Nurse Diabetes Educator; Referring Provider Physician Assistant; Visit Provider Physician Assistant
DX: M19.011 Primary osteoarthritis, right shoulder (principal); M25.511 Pain in right shoulder
CPT/HCPCS: 73000; 73030

== ENCOUNTER → 2025-03-17 07:39 | Outpatient (CLI) | payer OTHER, SELFPAY ==
[2025-03-17 09:09] LABS: Hematocrit 41.9 % (36-46); Hemoglobin 14.1 g/dL (12.0-16.0); Mean Corpuscular HGB Conc 33.7 % (30-36); Mean Corpuscular Hemoglobin 30.3 PG (26-34); Mean Corpuscular Volume 89.8 fL (80-100); Platelet Count 190 X10^3/uL (150-400); Red Blood Cell Count 4.67 X10^6/uL (4.0-5.2); Red Cell Distribution Width 13.6 % (11.6-14.8); White Blood Cell Count 4.1 X10^3/uL (4.5-11.0)
[2025-03-17 09:19] LABS: Hemoglobin A1C% w Est Avg Glu 5.2 % (4.0-6.0)
[2025-03-17 09:26] LABS: Alanine Aminotransferase 14 IU/L (<35); Albumin 4.3 g/dL (3.5-5.0); Albumin Globulin Ratio 1.8 (1.0-2.8); Alkaline Phosphatase 67 U/L (38-126); Aspartate Aminotransferase 21 IU/L (14-36); BUN Creatinine Ratio 25.7 (6-22); Bilirubin Total 0.5 mg/dL (0.2-1.3); Blood Urea Nitrogen 18 mg/dL (7-17); Calcium 9.2 mg/dL (8.4-10.2); Carbon Dioxide 26 mmol/L (22-32); Chloride 103 mmol/L (98-107); Cholesterol 182 mg/dL (140-199); Estimated Glomerular Filt Rate > 60 mL/min (>60); Globulin 2.4 g/dL (1.7-4.1); Glucose 94 mg/dL (70-99); HDL Cholesterol 58 mg/dL (40-60); HEMOLYSIS < 15 (0-50); LDL Cholesterol Calculated 110 mg/dL (<100); Potassium 4.5 mmol/L (3.4-5.1); Sodium 137 mmol/L (137-145); Total Protein 6.7 g/dL (6.3-8.2); Triglycerides 70 mg/dL (35-150)
[2025-03-17 09:50] LABS: TSH w/ Reflex to FT4 2.64 uIU/mL (0.47-4.68)
[2025-03-17 10:46] LABS: Erythrocyte Sedimentation Rate 7 MM/HR (0-20)
[2025-03-18 08:08] LABS: CRP, High Sensitivity 1.16 mg/L (0.00-3.00)
[2025-03-19 06:06] LABS: Apolipoprotein B 90 mg/dL (<90)
[2025-03-20 11:09] LABS: Lipoprotein (a) <8.4 nmol/L (<75.0)
== END ==
PROVIDERS: PCP Registered Nurse Diabetes Educator; Referring Provider Registered Nurse Diabetes Educator; Visit Provider Registered Nurse Diabetes Educator
DX: Z00.00 Encounter for general adult medical examination without abnormal findings (principal); E03.9 Hypothyroidism, unspecified; I10 Essential (primary) hypertension; E78.5 Hyperlipidemia, unspecified; E78.00 Pure hypercholesterolemia, unspecified
CPT/HCPCS: 36415; 80053; 80061; 82172; 82306; 83036; 83695; 84443; 85027; 85651; 86140

== ENCOUNTER → 2025-04-16 14:32 | Outpatient (CLI) | payer OTHER, SELFPAY ==
--- NOTE | 2025-04-16 14:33 | DI.RAD.S_ITS ---
PROCEDURE: XR DEXA AXIAL SKELETON INDICATIONS: SCREENING FOR OSTEOPOROSIS COMPARISON: None. FINDINGS: Lumbar Spine: Bone mineral density 0.946 g/cm2, T score -0.9. Left Femoral Neck: Bone mineral density 0.661 g/cm2, T score -1.7. Left Hip: Bone mineral density 0.830 g/cm2, T score -0.9. Fracture Risk Calculation (when applicable): 10-year fracture risk of a major osteoporotic fracture 5.3 percent and of a hip fracture 0.5 percent. (T score greater or equal to -1.0 to: NORMAL) (T score from -1.1 to -2.4: OSTEOPENIA) (T score less than or equal to -2.5: OSTEOPOROSIS) IMPRESSION: Osteopenia--- recommend repeat DEXA in 2-3 years for reassessment. Follow-up guidelines as follows: Osteoporosis: Consider a repeat DEXA and Vertebral Fracture Assessment (VFA) exam in 2 years or sooner if medically necessary, to reassess this patient's status. Osteopenia: Consider a repeat DEXA in 2-3 years to reassess this patient's status, or if there is a new clinical indication. Normal: Consider a repeat DEXA in 5 years or sooner, or if there is a new clinical indication. All treatment decisions require clinical judgment and consideration of individual patient factors, including patient preferences, comorbidities, previous drug use, risk factors not captured in the FRAX model (e.g., frailty, falls, vitamin D deficiency, increased bone turnover, interval significant decline in bone density ) and possible under- or over-estimation of fracture risk by FRAX. In addition, the NOF Guide recommends that FDA-approved medical therapies be considered in postmenopausal women and men age >= 50 years with a: * Hip or vertebral (clinical or morphometric) fracture * T-score of <=-2.5 at the spine or hip * Ten-year fracture probability by FRAX of >= 3% for hip fracture or >=20% for major osteoporotic fracture. Dictated by: Justin Dillard M.D. on 04/16/2025 at 21:59 Approved by: Justin Dillard M.D. on 04/16/2025 at 22:01
== END ==
PROVIDERS: PCP Registered Nurse Diabetes Educator; Referring Provider Emergency Medicine; Visit Provider Emergency Medicine
DX: Z13.820 Encounter for screening for osteoporosis (principal); M85.852 Other specified disorders of bone density and structure, left thigh
CPT/HCPCS: 77080

== ENCOUNTER → 2025-10-01 16:58 | Outpatient (CLI) | payer OTHER, SELFPAY ==
--- NOTE | 2025-10-01 17:00 | DI.MG.S_ITS ---
MM screening mammo BI: 10/01/2025. BI-RADS: 1 CLINICAL: 50-year old female for bilateral screening mammogram. Tyrer-Cuzick lifetime risk of 21.3%. Current reported family history of breast cancer: mother. PRIOR EXAMS 01/26/2024, 01/15/2023, 09/08/2021, 08/30/2020. MAMMOGRAPHY TECHNIQUE: 2D and 3D (tomosynthesis) digital mammographic views obtained, with additional images as needed for full coverage. Current study was also evaluated with a Computer Aided Detection (CAD) system. DENSITY C. The breasts are heterogeneously dense, which may obscure small masses. MAMMOGRAPHY FINDINGS Bilateral: No suspicious mass, asymmetry, microcalcification, or other abnormality seen. No significant change from comparison. IMPRESSION: * No evidence of malignancy. RECOMMENDATIONS Bilateral * According to the Tyrer-Cuzick Risk Assessment Model, based on the information provided your patient has a greater than 20% lifetime risk for developing breast cancer. Consider supplemental screening with breast MRI and participation in a high risk screening program. * Annual screening mammography. OVERALL ASSESSMENT CATEGORY BI-RADS-1: Negative. The [employer] recommends annual screening mammography beginning at age 40 for women with average risk of breast cancer. ELECTRONICALLY SIGNED: Demetri Nash M.D. on 10/02/2025 at 10:34:38 AM PT Interpreting Station ID: [id number]
== END ==
LOC: MAMMO 16:59
PROVIDERS: PCP Registered Nurse Diabetes Educator; Referring Provider Registered Nurse Diabetes Educator; Visit Provider Registered Nurse Diabetes Educator
DX: Z12.31 Encounter for screening mammogram for malignant neoplasm of breast (principal); Z80.3 Family history of malignant neoplasm of breast; R92.333 Mammographic heterogeneous density, bilateral breasts
CPT/HCPCS: 77063; 77067